=== PATIENT | male | born 1960 | race Caucasian/White ===

== ENCOUNTER 2020-01-24 02:34 | Emergency (ER) | payer SELFPAY ==
[2020-01-24] MEDS ORDERED: Ondansetron 4 MG/2 ML SDV IVPUSH ONE (02:59)
[2020-01-24] MEDS ORDERED: HYDROmorphone 0.5 MG/0.5 ML Syringe IVPUSH ONE ×2 (02:59→04:22)
[2020-01-24] MEDS ORDERED: Ketorolac 30 MG/ML SDV IVPUSH STA (02:59)
[2020-01-24] MEDS ORDERED: Tamsulosin 0.4 MG Cap.ER PO ONE (02:59)
[2020-01-24] MEDS ORDERED: Sodium Chloride 0.9% 1,000 ML IV SCH (03:00)
--- NOTE | 2020-01-24 03:06 | EDM.PDOC ---
ED HPI GENERAL MEDICAL PROBLEM - General Chief Complaint: Flank Pain Stated Complaint: right side pain Time Seen by Provider: 01/24/20 02:49 Source of Information: Reports: Patient History Limitations: Reports: No Limitations - History of Present Illness INITIAL COMMENTS - FREE TEXT/NARRATIVE: Mr. Ngo is a very pleasant 59-year-old gentleman who now presents the ED after he was woken around 01:00 this morning with severe dull lower right back pain that radiates around to his right lower abdomen. He has had nausea and vomiting. He took some Tylenol around that time with no relief in his symptoms. No prior similar symptoms. The patient denies having any urinary symptoms such as dysuria, urinary frequency, or gross hematuria. Here in the ED, the patient's initial BP is found to be mildly elevated at 155/93, with bradycardia of 53 bpm. He is afebrile, saturating 95% on room air. Other than this morning's back pain with nausea vomiting, the patient denies having a recent fever, chills, sore throat, ear pain, nasal or sinus congestion, cough, dyspnea, chest pain, palpitations, nausea, vomiting, constipation, diarrhea, abdominal pain, urinary symptoms, recent weight gain or weight loss, recent bloody bowel movements or black bowel movements, recent joint aches, headaches, or rashes. The patient's PCP is Dr. Enrique Montiel. He already received an influenza vaccine this season. Right Flank Pain Score (Numeric/FACES): 9 - Related Data Allergies Allergy/AdvReac Type Severity Reaction Status Date / Time No Known Allergies Allergy Verified 01/24/20 02:54 Home Meds: Home Meds Acetaminophen/oxyCODONE [Percocet 325-5 MG] 1 - 2 tab PO Q6H PRN #30 tab 01/24/20 [Rx] Ondansetron [Zofran ODT] 1 tab PO Q8H PRN #15 tab.dis 01/24/20 [Rx] Tamsulosin HCl [Flomax] 1 cap PO QAM PRN #14 cap.er.24h 01/24/20 [Rx] Past Medical History Cardiovascular History: Reports: Hypertension Neurological History: Reports: Vertigo Psychiatric History: Reports: Depression - Past Surgical History GI Surgical History: Reports: Appendectomy Musculoskeletal Surgical History: Reports: Other (See Below) (Right hand repair) ED ROS GENERAL - Review of Systems Review Of Systems: Comprehensive ROS is negative, except as noted in HPI. ED EXAM, RENAL/ - Physical Exam Exam: See Below Exam Limited By: No Limitations General Appearance: Alert, WD/WN, Mild Distress (pacing in exam room) Eye Exam: Bilateral Eye: EOMI, Normal Inspection Ears: Normal External Exam, Hearing Grossly Normal Nose: Normal Inspection Throat/Mouth: Normal Inspection, Normal Lips, Normal Voice, No Airway Compromise Head: Atraumatic, Normocephalic Neck: Normal Inspection, Full Range of Motion Respiratory/Chest: No Respiratory Distress, Lungs Clear, Normal Breath Sounds, No Accessory Muscle Use Cardiovascular: Normal Peripheral Pulses, Regular Rate, Rhythm, No Gallop, No JVD, No Murmur, No Rub GI/Abdominal: Normal Bowel Sounds, Soft, Non-Tender (including the lower right abdomen), No Organomegaly, No Distention, No Abnormal Bruit, No Mass Back Exam: Normal Inspection, Full Range of Motion. No: CVA Tenderness (L), CVA Tenderness (R) Extremities: Normal Inspection, Normal Range of Motion, No Pedal Edema, Normal Capillary Refill Neurological: Alert, Oriented, Normal Cognition, No Motor/Sensory Deficits Psychiatric: Normal Affect Skin Exam: Warm, Dry, Intact, Normal Color, No Rash Course - Vital Signs Last Recorded V/S: Last Vital Signs Temp 35.8 C L 01/24/20 02:48 Pulse 53 L 01/24/20 02:48 Resp 14 01/24/20 02:48 BP 155/93 H 01/24/20 02:48 Pulse Ox 95 01/24/20 02:48 - Orders/Labs/Meds Orders: Active Orders 24 hr Category Date Time Status Strain Urine [RC] ASDIRECTED Care 01/24/20 05:37 Active Abdomen Pelvis wo Cont [CT] Stat Exams 01/24/20 02:59 Taken CULTURE URINE [RM] Stat Lab 01/24/20 04:45 Received Sodium Chloride 0.9% [Normal Saline] 1,000 ml Med 01/24/20 03:00 Active IV ASDIRECTED Medication Orders Sodium Chloride (Normal Saline) 1,000 mls @ 150 mls/hr IV ASDIRECTED [facility] Last Admin: 01/24/20 03:14 Dose: 150 mls/hr Documented by: [facility] Labs: Laboratory Tests 01/24/20 Range/Units 04:45 Urine Color Yellow (Yellow) Urine Appearance Clear (Clear) Urine pH 6.0 (5.0-8.0) Ur Specific [place] 1.025 (1.005-1.030) Urine Protein Negative (Negative) Urine Glucose (UA) Negative (Negative) Urine Ketones Negative (Negative) Urine Occult Blood 2+ H (Negative) Urine Nitrite Negative (Negative) Urine Bilirubin Negative (Negative) Urine Urobilinogen 0.2 (0.2-1.0) Ur Leukocyte Esterase 1+ H (Negative) Urine RBC 20-30 H (0-5) /hpf Urine WBC 10-20 H (0-5) /hpf Ur Squamous Epith Cells 10-20 H (0-5) /hpf Urine Bacteria Few (FEW) /hpf Urine Mucus Few (FEW) /hpf Meds: Medications Generic Name Dose Route Start Last Admin Trade Name Freq PRN Reason Stop Dose Admin Sodium Chloride 1,000 mls @ 150 mls/hr 01/24/20 03:00 01/24/20 03:14 Normal Saline IV 150 mls/hr ASDIRECTED JOI Administration Discontinued Medications Generic Name Dose Route Start Last Admin Trade Name Freq PRN Reason Stop Dose Admin Hydromorphone HCl 0.5 mg 01/24/20 02:59 01/24/20 03:15 Dilaudid IVPUSH 01/24/20 03:00 0.5 mg ONETIME ONE Administration Hydromorphone HCl 0.5 mg 01/24/20 04:22 01/24/20 04:27 Dilaudid IVPUSH 01/24/20 04:23 0.5 mg ONETIME ONE Administration Ketorolac Tromethamine 30 mg 01/24/20 02:59 01/24/20 03:16 Toradol IVPUSH 01/24/20 03:00 30 mg ONETIME STA Administration Ondansetron HCl 4 mg 01/24/20 02:59 01/24/20 03:15 Zofran IVPUSH 01/24/20 03:00 4 mg ONETIME ONE Administration Tamsulosin HCl 0.4 mg 01/24/20 02:59 01/24/20 03:16 Flomax PO 01/24/20 03:00 0.4 mg ONETIME ONE Administration - Re-Assessments/Exams Free Text/Narrative Re-Assessment/Exam: 01/24/20 03:01 While the patient's physical exam is essentially benign, his history is most consistent with a right sided ureterolith. I have ordered a CT of his abdomen and pelvis without contrast, along with a urinalysis by clean-catch to evaluate. In the meantime, the patient will be given IV Dilaudid, oral Flomax, IV fluid, IV Toradol, and IV Zofran. 01/24/20 03:59 CT of the abdomen and pelvis without contrast is read by [facility] as: 1. Bilateral nephrolithiasis. Mild right hydronephrosis with an obstructing 3 mm stone in the UPJ. 2. Colonic diverticulosis without evidence of acute diverticulitis. 3. Mild mesenteric adenitis which is a nonspecific, age-indeterminate finding. The patient has not yet provided a urine sample for the urinalysis. 01/24/20 05:26 The patient's urinalysis is remarkable for 2+ occult blood with 20-30 RBCs, 1+ leukocyte esterase with 10-20 WBCs, nitrate negative with few bacteria, and 10- 20 squamous epithelial cells. I have ordered a urine culture, but I do not believe that his urinalysis is consistent with a UTI, therefore I am not going to start him on antibiotics. 01/24/20 05:31 Test results discussed with the patient. He is feeling pretty good at this time. I will discharge him home with a urine strainer, the recommendation that he take [id number] ibuprofen [id number], and I will submit prescriptions for [place], Flomax, and Zofran. I will give him a referral to Dr. Bynum, in case he does not pass the stone within a couple of weeks. Departure - Departure Time of Disposition: 05:33 Disposition: Home, Self-Care 01 Condition: Good Clinical Impression: Ureterolithiasis - Discharge Information *PRESCRIPTION DRUG MONITORING PROGRAM REVIEWED*: Not Applicable *COPY OF PRESCRIPTION DRUG MONITORING REPORT IN PATIENT NEAL: Not Applicable Prescriptions: Tamsulosin HCl [Flomax] 1 cap PO QAM PRN #14 cap.er.24h PRN Reason: Pain Acetaminophen/oxyCODONE [Percocet 325-5 MG] 1 - 2 tab PO Q6H PRN #30 tab PRN Reason: Pain (Severe 7-10) Ondansetron [Zofran ODT] 1 tab PO Q8H PRN #15 tab.dis PRN Reason: Nausea/Vomiting Referrals: Serge Bynum MD [Ordering Only Provider] - Enrique Montiel Jr, MD [Primary Care Provider] - Forms: ED Department Discharge Additional Instructions: You were seen in the emergency room after waking up with severe lower right back pain radiating around to your right side. Work-up in the ER included a CT of your abdomen and pelvis without contrast, and a urinalysis. The CT confirmed that you have a 3 mm stone in your mid-right ureter. This is the cause of your pain. We recommend that you take [id number] ibuprofen, 3 tablets (600 mg) every 8 hours, with food, [id number]. You may take 1 to 2 tablets of the opioid pain reliever Percocet up to every 6 hours, as needed for pain not relieved by ibuprofen. If you take Percocet, do not drive or operate heavy machinery for 12 hours afterwards. Percocet may cause constipation, so consider taking a stool softener. We recommend that you take 1 tablet of the anti-spasm medicine tamsulosin (Flomax) every morning, starting tomorrow morning, 01/25/2020, as needed for discomfort. You may dissolve 1 tablet of the anti-nausea medicine Zofran on your tongue up to every 8 hours, as needed for nausea/vomiting. Stay adequately hydrated. It does not really matter what type of fluid you drink. Strain all of your urine. If you capture the stone, take it to your doctor for analysis. If you continue to have pain after 1 week, please follow-up with the Urologist Dr. Serge Bynum, in [place], for further evaluation and treatment. If any other problems, please do not hesitate to return to the ER. Sepsis Event Note (ED) - Evaluation Sepsis Screening Result: No Definite Risk - Focused Exam Vital Signs: Vital Signs Temp Pulse Resp BP Pulse Ox 01/24/20 02:48 35.8 C L 53 L 14 155/93 H 95 - My Orders Last 24 Hours: My Active Orders 01/24/20 02:59 Abdomen Pelvis wo Cont [CT] Stat 01/24/20 03:00 Sodium Chloride 0.9% [Normal Saline] 1,000 ml IV ASDIRECTED 01/24/20 04:45 CULTURE URINE [RM] Stat 01/24/20 05:37 Strain Urine [RC] ASDIRECTED - Assessment/Plan Last 24 Hours: My Active Orders 01/24/20 02:59 Abdomen Pelvis wo Cont [CT] Stat 01/24/20 03:00 Sodium Chloride 0.9% [Normal Saline] 1,000 ml IV ASDIRECTED 01/24/20 04:45 CULTURE URINE [RM] Stat 01/24/20 05:37 Strain Urine [RC] ASDIRECTED
--- NOTE | 2020-01-24 09:21 | CT ---
PROCEDURE INFORMATION: Exam: CT Abdomen And Pelvis Without Contrast Exam date and time: 01/24/2020 3:28 AM Age: 59 years old Clinical indication: Abdominal pain; Flank; Right TECHNIQUE: Imaging protocol: Computed tomography of the abdomen and pelvis without contrast. Radiation optimization: All CT scans at this facility use at least one of these dose optimization techniques: automated exposure control; mA and/or kV adjustment per patient size (includes targeted exams where dose is matched to clinical indication); or iterative reconstruction. COMPARISON: No relevant prior studies available. FINDINGS: Lungs: There is minimal bibasilar atelectasis. Liver: Normal. No mass. Gallbladder and bile ducts: Normal. No calcified stones. No ductal dilation. Pancreas: Normal. No ductal dilation. Spleen: Normal. No splenomegaly. Adrenal glands: Normal. No mass. Kidneys and ureters: Small bilateral renal stones. Mild right hydronephrosis with an obstructing 3 mm stone in the UPJ. No left hydronephrosis. 1.2 cm left renal simple cyst. Stomach and bowel: Colonic diverticulosis without evidence of acute diverticulitis. No bowel obstruction. No mucosal thickening or pneumatosis. Appendix: The appendix is absent. Intraperitoneal space: See "Lymph nodes" finding. Nonspecific small amount of free pelvic fluid. No focal fluid collections. No free air. Vasculature: Moderate calcified atherosclerosis of the abdominal aorta. No abdominal aortic aneurysm. Lymph nodes: Mild central mesenteric fat stranding with prominent mesenteric lymph nodes. Urinary bladder: Unremarkable as visualized. Reproductive: Unremarkable as visualized. Bones/joints: Degenerative disc disease at L5-S1 with severe loss of disc height. Soft tissues: There is a small fat-containing umbilical hernia. IMPRESSION: 1. Bilateral nephrolithiasis. Mild right hydronephrosis with an obstructing 3 mm stone in the UPJ. 2. Colonic diverticulosis without evidence of acute diverticulitis. 3. Mild mesenteric adenitis which is a nonspecific, age-indeterminate finding. Thank you for allowing us to participate in the care of your patient. Dictated and Authenticated by: Jose Angel Norwood MD 01/24/2020 4:54 AM Central Time ([place] & [place]) [facility]
== END 2020-01-24 05:55 | disposition home or self-care (01) ==
LOC: JD.ED 02:34
DX: N13.2 Hydronephrosis with renal and ureteral calculous obstruction (principal); I10 Essential (primary) hypertension
CPT/HCPCS: 74176; 81001; 87086; 96374; 96375; 96376; 99284; A9270; J1170; J1885; J2405; J7030

== ENCOUNTER 2022-05-17 15:36 | Emergency (ER) | payer OTHER | END 2022-05-17 16:40 | disposition home or self-care (01) | LOC: JD.ED 15:36 | DX: Z76.0 Encounter for issue of repeat prescription (principal); I10 Essential (primary) hypertension; Z79.899 Other long term (current) drug therapy | CPT/HCPCS: 99281; 99283 ==

== ENCOUNTER 2023-03-03 07:03 | Emergency (ER) | payer SELFPAY ==
[2023-03-03] MEDS ORDERED: Metoclopramide 10 MG/2 ML SDV IVPUSH ONE (07:34)
[2023-03-03] MEDS ORDERED: HYDROmorphone 1 MG/ML Syringe IVPUSH ONE (07:34)
[2023-03-03] MEDS ORDERED: Dextrose 5%-0.9% NaCl 1,000 ML IV SCH (07:45)
[2023-03-03] MEDS ORDERED: HYDROmorphone 0.5 MG/0.5 ML Syringe IVPUSH STA (08:04)
[2023-03-03] MEDS ORDERED: fentaNYL 100 MCG/2 ML SDV IVPUSH ONE (08:30)
[2023-03-03 08:40] LABS: APPEARANCE,URINE CLEAR (Clear); BILIRUBIN,URINE NEGATIVE (Negative); COLOR,URINE ORANGE (Yellow); GLUCOSE,URINE NEGATIVE (Negative); KETONES,URINE NEGATIVE (Negative); LEUKOCYTE ESTERASE,URINE TRACE (Negative); NITRITE,URINE POSITIVE (Negative); OCCULT BLOOD,URINE 2+ (Negative); PROTEIN,URINE 2+ (Negative); UROBILINOGEN,URINE 0.2 (0.2-1.0)
[2023-03-03 09:16] LABS: BACTERIA,URINE FEW /hpf (FEW); EPITHELIAL CELLS,URINE 0-5 /hpf (0-5); MUCUS,URINE NOT SEEN /hpf (FEW); WBC,URINE 0-5 /hpf (0-5)
== END 2023-03-03 09:30 | disposition home or self-care (01) ==
LOC: JD.ED 07:03
DX: N13.2 Hydronephrosis with renal and ureteral calculous obstruction (principal); N21.0 Calculus in bladder; I10 Essential (primary) hypertension; Z90.49 Acquired absence of other specified parts of digestive tract; Z79.899 Other long term (current) drug therapy
CPT/HCPCS: 74176; 81001; 96374; 96375; 99284; J1170; J2765; J3010; J7042

== ENCOUNTER 2023-03-03 17:00 | Emergency (ER) | payer SELFPAY ==
[2023-03-03] MEDS ORDERED: Magnesium Citrate Solution 296 ML Bottle PO ONE (21:17)
== END 2023-03-03 22:41 | disposition home or self-care (01) ==
LOC: JD.ED 17:00
DX: K59.03 Drug induced constipation (principal); T47.4X5A Adverse effect of other laxatives, initial encounter; I10 Essential (primary) hypertension; Z90.49 Acquired absence of other specified parts of digestive tract; Z79.899 Other long term (current) drug therapy
CPT/HCPCS: 99283; A9270

== ENCOUNTER 2023-03-07 13:34 | Emergency (ER) | payer OTHER ==
[2023-03-07] MEDS ORDERED: Sodium Chloride 0.9% 10 ML Syringe FLUSH PRN (14:01)
[2023-03-07 14:30] LABS: APPEARANCE,URINE CLEAR (Clear); BILIRUBIN,URINE NEGATIVE (Negative); COLOR,URINE YELLOW (Yellow); GLUCOSE,URINE NEGATIVE (Negative); KETONES,URINE NEGATIVE (Negative); LEUKOCYTE ESTERASE,URINE TRACE (Negative); NITRITE,URINE NEGATIVE (Negative); OCCULT BLOOD,URINE 2+ (Negative); PROTEIN,URINE 1+ (Negative); UROBILINOGEN,URINE 0.2 (0.2-1.0)
[2023-03-07 14:41] LABS: BACTERIA,URINE FEW /hpf (FEW); MUCUS,URINE FEW /hpf (FEW); RBC,URINE 50-75 /hpf (0-5)
[2023-03-07 15:06] LABS: BASOPHILS ABSOLUTE AUTO 0.1 K/mm3 (0.0-0.2); BASOPHILS PERCENT AUTO 0.5 % (0.0-1.0); EOSINOPHILS ABSOLUTE AUTO 0.3 K/mm3 (0.0-0.4); EOSINOPHILS PERCENT AUTO 2.5 % (0.0-6.0); HEMATOCRIT 30.1 % (42.0-52.0); HEMOGLOBIN 9.6 gm/dl (14.0-18.0); IMMATURE GRAN ABSOLUTE AUTO 0.15 K/mm3 (0.00-0.05); IMMATURE GRAN PERCENT AUTO 1.4 % (0.0-0.4); LYMPHOCYTES ABSOLUTE AUTO 0.9 K/mm3 (1.0-4.8); LYMPHOCYTES PERCENT AUTO 8.2 % (24.0-44.0); MEAN CORPUSCULAR HEMOGLOBIN 30.9 pg (28.0-32.0); MEAN CORPUSCULAR HGB CONC 31.9 g/dl (32.0-36.0); MEAN CORPUSCULAR VOLUME 96.8 fl (83.0-99.0); MEAN PLATELET VOLUME 8.4 fl (9.4-12.4); MONOCYTES PERCENT AUTO 9.3 % (0.0-8.0); NEUTROPHILS ABSOLUTE AUTO 8.6 K/mm3 (1.8-7.7); NEUTROPHILS PERCENT AUTO 78.1 % (41.0-71.0); PLATELET COUNT,PLT 383 K/mm3 (150-400); RED BLOOD CELL COUNT 3.11 M/mm3 (4.52-5.90)
[2023-03-07 15:32] LABS: A/G RATIO 0.6 (1-2); ALBUMIN 2.6 g/dl (3.4-5.0); ANION GAP 16.7 (5-15); BILIRUBIN TOTAL 0.2 mg/dL (0.2-1.0); BUN/CREATININE RATIO 17.1 (14-18); C-REACTIVE PROTEIN 4.9 mg/dL (<1.0); CREATININE 1.4 mg/dL (0.7-1.3); EST CRCL DRUG DOSING (CG) 53.61 mL/min; POTASSIUM,K 4.7 mEq/L (3.5-5.1); PROTEIN TOTAL,TP 6.9 g/dl (6.4-8.2)
[2023-03-07] MEDS ORDERED: Ketorolac 60 MG/2 ML SDV IM ONE (15:47)
[2023-03-07] MEDS ORDERED: HYDROmorphone 1 MG/ML Syringe IM ONE (15:47)
== END 2023-03-07 17:08 | disposition home or self-care (01) ==
LOC: JD.ED 13:34
DX: R10.9 Unspecified abdominal pain (principal); F17.210 Nicotine dependence, cigarettes, uncomplicated; I10 Essential (primary) hypertension; Z79.899 Other long term (current) drug therapy
CPT/HCPCS: 36415; 74176; 80053; 81001; 85025; 86140; 96372; 99284; J1170; J1885

== ENCOUNTER 2023-03-11 08:39 | Emergency (ER) | payer OTHER | END 2023-03-11 10:45 | disposition left against medical advice (07) | LOC: JD.ED 08:39 | DX: N39.41 Urge incontinence (principal); I10 Essential (primary) hypertension; Z79.899 Other long term (current) drug therapy | CPT/HCPCS: 99282; 99283 ==

== ENCOUNTER 2023-07-10 15:30 | Emergency (ER) | payer OTHER ==
[2023-07-10] MEDS: Sodium Chloride 0.9% 10 ML Syringe FLUSH PRN (17:15)
[2023-07-10] MEDS: Sodium Chloride 0.9% 1,000 ML IV STA (17:17)
[2023-07-10 17:21] LABS: HEMOGLOBIN 9.4 gm/dl (14.0-18.0); MEAN CORPUSCULAR HEMOGLOBIN 30.3 pg (28.0-32.0); MEAN CORPUSCULAR HGB CONC 32.4 g/dl (32.0-36.0); MEAN CORPUSCULAR VOLUME 93.5 fl (83.0-99.0); MEAN PLATELET VOLUME 8.5 fl (9.4-12.4); PLATELET COUNT,PLT 398 K/mm3 (150-400); WHITE BLOOD CELL COUNT,WBC 28.98 K/mm3 (3.9-11.3)
[2023-07-10 17:44] LABS: A/G RATIO 0.6 (1-2); ALBUMIN 2.5 g/dl (3.4-5.0); ANION GAP 14.8 (5-15); BILIRUBIN TOTAL 0.3 mg/dL (0.2-1.0); BUN/CREATININE RATIO 22.1 (14-18); CALCIUM 8.8 mg/dL (8.5-10.1); CREATININE 1.4 mg/dL (0.7-1.3); EST CRCL DRUG DOSING (CG) 53.61 mL/min; MAGNESIUM 2.3 mg/dL (1.8-2.4); POTASSIUM,K 4.8 mEq/L (3.5-5.1); PROTEIN TOTAL,TP 6.6 g/dl (6.4-8.2)
[2023-07-10 18:03] LABS: LACTIC ACID 0.4 mmol/L (0.4-2.0)
[2023-07-10 18:10] LABS: APPEARANCE,URINE CLOUDY (Clear); BILIRUBIN,URINE NEGATIVE (Negative); COLOR,URINE AMBER (Yellow); GLUCOSE,URINE NEGATIVE (Negative); KETONES,URINE NEGATIVE (Negative); LEUKOCYTE ESTERASE,URINE 3+ (Negative); NITRITE,URINE POSITIVE (Negative); OCCULT BLOOD,URINE 3+ (Negative); PROTEIN,URINE 3+ (Negative); UROBILINOGEN,URINE 0.2 (0.2-1.0)
[2023-07-10 18:38] LABS: BAND PERCENT MAN 2 % (0-10); BASOPHILS PERCENT MAN 0 (0.2-1.2); EOSINOPHILS PERCENT MAN 0 % (0.8-7.0); LYMPHOCYTES % ATYPICAL MANUAL 0 %; LYMPHOCYTES PERCENT MAN 2 % (20-40); MONOCYTES PERCENT MAN 1 % (2-10)
[2023-07-10 18:42] LABS: HYPERSEGMENTED NEUTROPHILS FEW; TOXIC GRANULATION MODERATE
[2023-07-10 18:43] LABS: POLYCHROMASIA FEW
[2023-07-10 18:44] LABS: ANISOCYTOSIS 1+ SLIGHT; PLATELET COUNT ESTIMATE ADEQUATE
[2023-07-10] MEDS: cefTRIAXone 2 GM in Sodium Chloride 0.9% 100 ML IV ONE (18:50)
[2023-07-10 19:04] LABS: BACTERIA,URINE MANY /hpf (FEW); MUCUS,URINE FEW /hpf (FEW); RBC,URINE >100 /hpf (0-5); SQUAMOUS EPITHELIAL CELLS,UR 0-5 /hpf (0-5); WBC,URINE TOO NUMEROUS TO CNT /hpf (0-5)
== END 2023-07-10 19:46 | disposition home or self-care (01) ==
LOC: JD.ED 15:30
DX: N39.0 Urinary tract infection, site not specified (principal); R31.9 Hematuria, unspecified; F17.210 Nicotine dependence, cigarettes, uncomplicated; I10 Essential (primary) hypertension; Z79.899 Other long term (current) drug therapy
CPT/HCPCS: 36415; 71046; 80053; 81001; 81003; 83605; 83735; 85007; 85027; 86140; 87040; 87086; 96361; 96365; 99285; J0696; J1642; J3490; J7030; 99283

== ENCOUNTER 2024-05-02 18:17 | Emergency (ER) | payer OTHER ==
[2024-05-02] MEDS: fentaNYL 100 MCG/2 ML SDV IVPUSH ONE ×2 (19:54→22:22)
[2024-05-02] MEDS: Ondansetron 4 MG/2 ML SDV IVPUSH ONE ×2 (19:54→22:22)
[2024-05-02] MEDS: HYDROmorphone 1 MG/ML Syringe IVPUSH ONE ×2 (20:14→21:19)
[2024-05-02] MEDS: Metoclopramide 10 MG/2 ML SDV IVPUSH ONE (21:04)
[2024-05-02 21:10] LABS: BASOPHILS ABSOLUTE AUTO 0.1 K/mm3 (0.0-0.2); BASOPHILS PERCENT AUTO 0.4 % (0.0-1.0); EOSINOPHILS PERCENT AUTO 0.1 % (0.0-6.0); HEMATOCRIT 31.6 % (42.0-52.0); IMMATURE GRAN ABSOLUTE AUTO 2.54 K/mm3 (0.00-0.05); LYMPHOCYTES PERCENT AUTO 3.6 % (24.0-44.0); MEAN CORPUSCULAR HEMOGLOBIN 27.2 pg (28.0-32.0); MEAN CORPUSCULAR HGB CONC 31.6 g/dl (32.0-36.0); MEAN CORPUSCULAR VOLUME 85.9 fl (83.0-99.0); MEAN PLATELET VOLUME 8.9 fl (9.4-12.4); MONOCYTES ABSOLUTE AUTO 1.7 K/mm3 (0.0-0.8); MONOCYTES PERCENT AUTO 5.9 % (0.0-8.0); NEUTROPHILS ABSOLUTE AUTO 22.8 K/mm3 (1.8-7.7); NRBC ABSOLUTE 0.03 (0.00-0.02); NRBC PERCENT 0.1 % (0.0-0.2); PLATELET COUNT,PLT 719 K/mm3 (150-400); RED BLOOD CELL COUNT 3.68 M/mm3 (4.52-5.90); WHITE BLOOD CELL COUNT,WBC 28.12 K/mm3 (3.9-11.3)
[2024-05-02 21:49] LABS: A/G RATIO 0.4 (1-2); ALBUMIN 2.5 g/dl (3.4-5.0); ANION GAP 17.5 (5-15); BILIRUBIN TOTAL 0.3 mg/dL (0.2-1.0); BUN/CREATININE RATIO 11.6 (14-18); CALCIUM 11.1 mg/dL (8.5-10.1); CREATININE 1.9 mg/dL (0.7-1.3); POTASSIUM,K 4.5 mEq/L (3.5-5.1); PROTEIN TOTAL,TP 8.2 g/dl (6.4-8.2)
[2024-05-02] MEDS: cefTRIAXone 2 GM Vial IVPUSH ONE (22:22)
== END 2024-05-02 23:46 | disposition home or self-care (01) ==
LOC: JD.ED 18:17
DX: R10.84 Generalized abdominal pain (principal); R11.2 Nausea with vomiting, unspecified; L03.312 Cellulitis of back [any part except buttock and flank]; I10 Essential (primary) hypertension; Z79.899 Other long term (current) drug therapy; Z90.49 Acquired absence of other specified parts of digestive tract
CPT/HCPCS: 36415; 80053; 85025; 96374; 96375; 96376; 99284; J0696; J1171; J2405; J2765; J3010